=== PATIENT | female | born 1985 | race African-American/Black ===

== ENCOUNTER 2019-11-30 07:33 | Day surgery (SDC) | payer OTHER ==
[2019-11-26 12:10] VITALS: BMI 27.1
[2019-11-30] MEDS ORDERED: MIDAZOLAM HCL 2 MG/2 ML SINGLE DOSE VIAL ONE (08:06)
[2019-11-30] MEDS ORDERED: BUPIVACAINE HCL/PF 0.5% (5 MG/ML) 30 ML VIAL IJ ONE (08:06)
[2019-11-30] MEDS ORDERED: ROPIVACAINE HCL 0.5% 30ML VIAL ONE (08:10)
[2019-11-30] MEDS ORDERED: PROPOFOL 20 ML ONE ×2 (08:46→08:49)
[2019-11-30] MEDS ORDERED: EPHEDRINE SULFATE/0.9% NACL/PF 50 MG/10 ML SYRINGE NR ONE (08:50)
[2019-11-30] MEDS ORDERED: LIDOCAINE HCL/PF 2% SDV 5ML VIAL ONE (08:50)
[2019-11-30] MEDS ORDERED: LIDOCAINE HCL 1%, 10 MG/ML (20ML VIAL) ONE (09:43)
[2019-11-30] MEDS ORDERED: ceFAZolin SODIUM 1 GM VIAL ONE (10:15)
[2019-11-30] MEDS ORDERED: DEXAMETHASONE SOD PHOSPHATE 4 MG/1 ML VIAL ONE ×2 (10:51)
[2019-11-30] MEDS ORDERED: ONDANSETRON 4 MG/2 ML VIAL ONE (10:51)
[2019-11-30] MEDS ORDERED: ONDANSETRON 4 MG/2 ML VIAL IVPUSH PRN (11:33)
--- NOTE | 2019-11-30 11:57 | OP ---
DATE OF OPERATION: 11/30/2019 PREOPERATIVE DIAGNOSIS: Adhesive capsulitis of left shoulder with rotator cuff tear. POSTOPERATIVE DIAGNOSIS: 1. Adhesive capsulitis of left shoulder or frozen shoulder. 2. Tearing of the rotator cuff. 3. Impingement from the acromion. 4. Tearing of the glenoid labrum. 5. Impingement from lateral clavicle including the articular portion 6. Extensive bursal inflammation. PROCEDURE PERFORMED: 1. Manipulation of left shoulder which was done gently under anesthesia. 2. Arthroscopy of the left shoulder with rotator cuff debridement. 3. Partial acromioplasty. 4. Partial glenoid labral resection. 5. Lateral clavicular resection including the articular portion, a Jakub procedure. 6. Extensive bursectomy. SURGEON: Rob Mc MD SOCIAL ORGANIZATION PROFESSOR: MELBA Nunez ANESTHESIOLOGIST: MITCHELL Meyer TYPE OF ANESTHESIA: Interscalene block with general augmentation. PROCEDURE PERFORMED: The procedure consisted of the patient being brought in the operating room and gently transferred from the stretcher to the OR table with all bony prominences well padded. The left shoulder was prepared and draped in a sterile fashion. Patent was given intravenous antibiotics and copious irrigation throughout the procedure to minimize risk of infection. A complete risk/benefit/ alternative discussion was conducted with the patient which was inclusive of but not limited to infection, bleeding, , paralysis, increased pain and need for repeat surgery. Patient asked questions, understood the procedure and desired to proceed with surgical treatment. Following sterile preparation and draping of the left shoulder an appropriate time out had been conducted which was inclusive of but not limited to type of surgery, site of surgery, anesthesiologist and surgeon. Following sterile preparation and draping of the left shoulder the patient was placed in the left side up lateral decubitus position. A pillow between the legs and a pillow below the legs were used to protect the neurovascular structures of the legs. The body was supported by a pneumatic conforming pillow and an axillary roll had been placed to protect the lower shoulder. The neck was kept in good alignment by the anesthesiologist and the face was protected throughout the procedure by the anesthesiologist. Following sterile preparation and draping gentle manipulation of the left shoulder was performed. Initially only 90 degrees of abduction and 90 degrees of flexion with extension of 10 degrees and internal rotation of 40 degrees, external rotation 10 degrees was found. Following the gentle slow manipulation abduction was to 170 degrees, flexion to 170 degrees, extension 30 degrees, internal rotation 90 degrees, external rotation 30 degrees. The anterior, posterior and lateral portals were used to introduce the arthroscope and arthroscopic instruments. The anterior portal was fabricated using the inside-out method over a transfer yeni to protect the anterior structures to the shoulder. The glenohumeral joint was evaluated. There was noted to be integrity to the biceps tendon and the middle glenohumeral ligament. The anterior and posterior recesses without plica or loose body. Glenoid labrum was found to have a tear and a partial glenoid labral resection was performed. Rotator cuff was found to have a tear which was probed and found to be partial thickness and this was debrided using a shaver and radiofrequency wand. There were noted to be adhesions within the joint which were lysed and resected. A joint debridement was conducted. Our attention was turned to the subacromial space. There was noted to be inflamed extensive bursal tissue and an extensive bursectomy was performed. Rotator cuff on the bursal side was found to be intact. Outer edge of acromion was noted to have impingement. This was debrided and a high-speed bur and shaver were used to resect a wedge of bone taken anteriorly, then posteriorly. Impingement was also found from the clavicle and this was debrided and the articular portion was also creating impingement and this was debrided using the shaver and the radiofrequency wand. A bur was used to resect lateral clavicle including the articular portion. The shoulder joint was then copiously irrigated with sterile saline irrigant. The wounds were closed with 4-0 undyed Vicryl followed by Steri-Strips, Xeroform, 4 x 4's, combined Elastoplast and a shoulder immobilizer. The patient was then gently awoken from anesthesia without incident and transported from the operating room to the recovery room in satisfactory condition. There were no intraoperative complications. Deanna [id number] MTDFredy
[2019-11-30 13:58] VITALS: BP 120/82; PULSE 79; TEMP 98
--- NOTE | 2019-11-30 15:37 | SURG ---
Surgery Air Traffic Supervisor Note Air Traffic Supervisor: Karely Peter PA-C Date of Service: 11/30/19 Diagnosis: adhesive capsulitis of the left shoulder with rotator cuff tear Procedure: Manipulation of left shoulder under general anesthesia arthroscopy of the left shoulder with rotator cuff debridement partial acrominoplasty partial glenoid labral resection lateral clavicular resection including the articular portion, a Jakub procedure extensive bursectomy I was present for the entirety of the operative procedure. For further detail, please refer to operative report. Visit type - Case Type Case Type: Scheduled - Emergency Emergency Visit: No - New patient This patient is new to me today: Yes Date on this admission: 11/30/19
== END 2019-11-30 13:45 | disposition home or self-care (01) ==
LOC: FASU 07:33
PROVIDERS: ATTEND Orthopaedic Surgery
PROC: 0PBB4ZZ Excision of Left Clavicle, Percutaneous Endoscopic Approach (ICD-10-PCS; 2019-11-30)
PROC: 0RBK4ZZ Excision of Left Shoulder Joint, Percutaneous Endoscopic Approach (ICD-10-PCS; 2019-11-30)
PROC: 0LQ24ZZ Repair Left Shoulder Tendon, Percutaneous Endoscopic Approach (ICD-10-PCS; principal; 2019-11-30 10:01)
DX: M75.112 Incomplete rotator cuff tear or rupture of left shoulder, not specified as traumatic (principal); M75.02 Adhesive capsulitis of left shoulder; M75.42 Impingement syndrome of left shoulder; M75.52 Bursitis of left shoulder; M24.112 Other articular cartilage disorders, left shoulder
CPT/HCPCS: 84703; 94760